=== PATIENT | female | born 1965 | race African-American/Black ===

== ENCOUNTER 2021-06-11 17:07 | Emergency (ER) | payer OTHER, SELFPAY ==
--- NOTE | 2021-06-11 17:14 | ED.GENADULT ---
HPI - General Adult General Chief complaint: Urogenital-Female Stated complaint: abd pain Time Seen by Provider: 06/11/21 17:14 Source: patient Mode of arrival: ambulatory Limitations: no limitations History of Present Illness HPI narrative: 55-year-old female patient presents to the [facility] with complaints of some vaginal irritation further the past 3 to 4 days. Patient states she had intercourse with a new partner about 5 days ago and about 1 or 2 days after intercourse started having some vaginal irritation. Patient states she did not use protection and would like to be tested for STDs today. Patient denies any pain with urination or burning. Denies any itching at this time. Patient states she might have a little bit of discharge but unsure what color it is. Related Data Allergies Allergy/AdvReac Type Severity Reaction Status Date / Time No Known Allergies Allergy Verified 06/11/21 17:41 Review of Systems Review of Systems: CONSTITUTIONAL: Denies fever, chills, or sweats. EYES: Denies visual changes, redness, or discharge. ENT: Denies rhinorrhea, congestion, sore throat, or otalgia. CARDIOVASCULAR: Denies chest pain, palpitations, or edema. RESPIRATORY: Denies cough or dyspnea. GASTROINTESTINAL: Denies abdominal pain, nausea, vomiting, or diarrhea. GENITOURINARY: Denies dysuria or hematuria. Positive vaginal irritation x3 days SKIN: Denies rash or itching. MUSCULOSKELETAL: Denies back pain, joint pain, or myalgia. NEUROLOGIC: Denies headache, numbness, or weakness. PSYCHIATRIC: Denies anxiety or depression. PMFSH Comments At the time of my signature I agree with nursing past medical history, surgical, social, and family history. There is no relevant family history pertinent to the presenting complaint. Exam Narrative: GENERAL: Well-appearing, well-nourished, and in no acute distress. HEAD: Normocephalic, atraumatic. EYES: PERRLA and EOMI. ENT: Nares clear, no rhinorrhea or epistaxis. Mucous membranes moist. NECK: Supple. No lymphadenopathy CHEST: Clear to auscultation. No respiratory distress. HEART: Regular rate and rhythm. No murmur heard. Normal peripheral pulses. ABDOMEN: Soft, nontender, nondistended, normal active bowel sounds. : Normal external female genitalia. OS is closed. No adnexal fullness or TTP. No CVA tenderness to percussion. Patient does have some milky white thin discharge. No obvious odor noted. A swab was taken for STD testing. EXTREMITIES: Normal range of motion. No edema. SKIN: Warm, dry, no rash. NEURO: No focal deficits. Alert and oriented x3. Course Vital Signs Vital signs: Vital Signs Temperature 36.7 C 06/11/21 17:41 Pulse Rate 100 06/11/21 17:41 Respiratory Rate 18 06/11/21 17:41 Blood Pressure 173/83 H 06/11/21 17:41 Pulse Oximetry 100 06/11/21 17:41 Temperature 36.7 C 06/11/21 17:41 Pulse Rate 100 06/11/21 17:41 Respiratory Rate 18 06/11/21 17:41 Blood Pressure 173/83 H 06/11/21 17:41 Pulse Oximetry 100 06/11/21 17:41 Medical Decision Making Differential Diagnosis Differential Diagnosis: Differential diagnosis: Appendicitis, ovarian torsion, gallbladder disease, ovarian torsion, pancreatitis, lower lobe pneumonia,AAA, AMI or ACS, DKA, diverticulitis. Uncomplicated lower UTI, uncomplicated UTI, pyelonephritis, gonorrhea, chlamydia, Trichomonas, bacterial vaginosis, herpes, HIV, yeast infection, urinary tract infection. Discussed with patient that it does appear most likely she is got bacterial vaginosis which we will go ahead and treat her for today. We will also test her for STDs for gonorrhea, chlamydia and trichomonas that we will send off to the lab. If we are testing her today we are also going to treat her today. Patient verbalized understanding of this denies any other questions or concerns at this time. Vital Signs Vital Signs: Vital Signs Temperature 36.7 C 06/11/21 17:41 Pulse Rate 100 06/11/21 17:41 Respiratory R
[2021-06-11 17:41] VITALS: BP 173/83; PULSE 100; RESP 18; TEMP 36.7; O2SAT 100
[2021-06-11] MEDS: AZITHROMYCIN 250 MG TABLET 1000 MG PO (18:58)
[2021-06-11] MEDS: cefTRIAXone 500 MG VIAL IM (18:58)
[2021-06-11] MEDS: LIDOCAINE HCL 1% LOCAL INJ 20 ML VIAL 2.1 ML INFILTRATE (18:59)
== END 2021-06-11 19:20 | disposition home or self-care (01) ==
PROVIDERS: Emergency Provider Nurse Practitioner Family
DX: N76.0 Acute vaginitis (principal)
CPT/HCPCS: 81003; 87086; 87088; 87491; 87591; 87661; 96372; 99214; A9270; G0463; J0696